=== PATIENT | female | born 1945 | race Caucasian/White ===

== ENCOUNTER 2019-10-13 07:04 | Day surgery (SDC) | payer MEDICARE, BC ==
[2019-10-13] MEDS ORDERED: Midazolam 1 MG/ML 2 ML SDV ONE (07:12)
[2019-10-13] MEDS ORDERED: fentaNYL 100 MCG/2 ML SDV ONE (07:12)
[2019-10-13] MEDS ORDERED: Propofol 200 MG/20 ML SDV ONE (07:12)
[2019-10-13] MEDS ORDERED: Cyanocobalamin (Vitamin B12) 1,000 MCG/ML SDV IM ONE (07:45)
[2019-10-13] MEDS ORDERED: Lactated Ringers 1,000 ML IV ONE (07:45)
[2019-10-13] MEDS ORDERED: Ampicillin/Sulbactam Na 3 GM in Sodium Chloride 0.9% 100 ML IV ONE (08:30)
[2019-10-13] MEDS ORDERED: Glycopyrrolate 0.2 MG/ML 2 ML SDV IVPUSH ONE (08:30)
[2019-10-13] MEDS ORDERED: MVI, Adult with Vitamin K 10 ML, Thiamine 200 MG, Chromium/Copper/Mang/Selen/Zn 1 ML in... IV ONE ×4 (08:45)
[2019-10-14 18:08] LABS: H. PYLORI BREATH TEST Negative (Negative)
--- NOTE | 2019-10-18 14:26 | OR ---
DATE OF PROCEDURE: 10/13/2019 SURGEON: Ronnell Webster MD PREOPERATIVE DIAGNOSIS: Epigastric pain and heartburn, status post previous Conrad-en-Y gastric bypass. POSTOPERATIVE DIAGNOSIS: Very mild pouch gastritis (minimal findings). OPERATIVE PROCEDURE: Upper gastrointestinal endoscopy with biopsies of the gastric pouch with CLOtest. ANESTHESIA: IV sedation. INDICATION FOR PROCEDURE: The patient is 16 years status post Conrad-en-Y gastric bypass, presenting with some worsening mid epigastric pain and some reflux-type symptoms. She presently has had omeprazole 20 mg twice a day. Plan is to proceed with upper GI endoscopy with biopsies as indicated. Potential risks including bleeding and perforation were discussed, and the patient wishes to proceed. DETAILS OF PROCEDURE: The patient was taken to the operating room and placed in a left lateral decubitus position. IV sedation was administered, after which the upper GI endoscope was passed orally through the length of the esophagus and into the gastric pouch, and from there through the gastrojejunostomy roughly 20 cm into the Conrad limb. Overall findings were very close to normal and there was perhaps some very mild pouch gastritis, but otherwise there were no areas of inflammation or stricturing noted within the examination. There was no bile within the Conrad limb i.e., no suggestion of a partial obstruction distally. At that point, biopsies were obtained from the gastric pouch, sent for CLOtest for H. pylori. Minimal bleeding from the biopsy sites was seen and the procedure then concluded. The plan will be to begin the patient on Carafate 500 mg dissolved in water, should be taken q.i.d. and otherwise continue the omeprazole b.i.d. We will have her follow up with Violet Chauhan in 1 month. We will also obtain a breath test today to double check the H. pylori issue as the biopsies in the gastric pouch made feel very sensitive in terms of identifying H. pylori infection. anti-H. Pylori regimen. The patient will be following with Violet Chauhan in 1 month, and at that time if she continued to have symptoms, it might be worthwhile trying a course of Levsin, and then at that point, we need to consider whether or not there is some pathology in the bypassed stomach and also carefully interrogate the patient regarding possible partial small bowel obstruction symptoms. Ronnell Webster MD /[id number]
== END 2019-10-13 13:30 | disposition home or self-care (01) ==
LOC: JP.SDS 07:04
PROVIDERS: ATTEND Surgery
DX: K29.70 Gastritis, unspecified, without bleeding (principal); I10 Essential (primary) hypertension; K21.9 Gastro-esophageal reflux disease without esophagitis; Z11.59 Encounter for screening for other viral diseases; Z98.84 Bariatric surgery status
CPT/HCPCS: 43239; 83013; 87081; J0295; J2250; J2704; J3010; J3411; J3420; J3490; J7050; J7120; U0002